=== PATIENT | male | born 1955 | race Two or more races ===

== ENCOUNTER 2022-03-01 23:13 | Emergency (ER) | payer SELFPAY ==
[~2022-03-01] VITALS: Ht 170.2 cm; Wt 74.6 kg
[2022-03-02 07:52] VITALS: BP 159/77
[2022-03-02] MEDS ORDERED: KETOROLAC TROMETH 60MG/2ML VIAL IM ONE (08:15)
[2022-03-02] MEDS ORDERED: CYCL-838 PO (09:16)
[2022-03-02] MEDS ORDERED: IBUP800T26 PO (09:16)
== END 2022-03-02 09:40 | disposition home or self-care (01) ==
LOC: ER 23:13
DX: S16.1XXA Strain of muscle, fascia and tendon at neck level, initial encounter (principal); S39.012A Strain of muscle, fascia and tendon of lower back, initial encounter; V49.9XXA Car occupant (driver) (passenger) injured in unspecified traffic accident, initial encounter; Y93.89 Activity, other specified; Y92.89 Other specified places as the place of occurrence of the external cause; Y99.8 Other external cause status
CPT/HCPCS: 72040; 72100; 96372; 99284; J1885